=== PATIENT | male | born 1985 | race Caucasian/White ===

== ENCOUNTER → 2016-07-18 | Outpatient (CLI) | payer OTHER ==
[~2016-07-18] MED LIST: FUROSEMIDE INJ 10 MG/ML 2 ML VIAL IV ONE
--- NOTE | 2016-07-18 12:50 | DIAGNOSTIC IMAGING REPORT ---
NUCLEAR DIURETIC RENAL SCAN CLINICAL HISTORY: Left-sided hydronephrosis. COMPARISON STUDY: No priors. TECHNIQUE: A nuclear diuretic renal scan is performed following the IV administration of 8.5 mCi technetium 99m radiolabeled MAG3. Posterior flow images were acquired. Posterior static images were acquired every 5 minutes for a total of 45 minutes. IV Lasix was administered at 20 minutes. Renal curves were calculated. FINDINGS: On the flow images, there is asymmetrically diminished perfusion of the left kidney as compared to the right. On the delayed images, there is normal attenuation and excretion of tracer from the right kidney. There is left-sided hydronephrosis with pooling of tracer within the left renal collecting system. There was appropriate response to Lasix in the right kidney. The left kidney does not show significant response to Lasix. Time to peak on the right measures 4 minutes and time to peak on the left measures 22 minutes. The T 1/2 post Lasix on the right measures 24.4 min and the T 1/2 post-Lasix on the left could not be calculated. Split function measures 80% on the right and 20% on the left. IMPRESSION: 1. There is diminished perfusion of the hydronephrotic left kidney as compared to the right. 2. There was pooling of tracer within the hydronephrotic left kidney which did not respond to Lasix. 3. Split renal function measures 80% on the right and 20% of the left. 4. Additional findings as above. Correlate with any previous anatomic imaging. Electronically signed by: Carmelo Dominguez M.D. 07/18/2016 12:49 PM Dictated Date/Time: 07/18/2016 12:43 PM
== END | disposition home or self-care (01) ==
LOC: C.NUCL 11:08
PROVIDERS: ATTEND Urology
DX: N13.39 Other hydronephrosis (principal)